=== PATIENT | female | born 1985 | race Caucasian/White ===

== ENCOUNTER 2016-09-20 08:20 | Emergency (ER) | payer OTHER | END 2016-09-20 09:28 | disposition home or self-care (01) | LOC: FER 08:20 | DX: H94.81 Other specified disorders of right ear in diseases classified elsewhere (principal); F17.200 Nicotine dependence, unspecified, uncomplicated; Z88.0 Allergy status to penicillin; Z88.1 Allergy status to other antibiotic agents; Z88.5 Allergy status to narcotic agent | CPT/HCPCS: 99282 ==

== ENCOUNTER 2016-09-23 12:28 | Emergency (ER) | payer OTHER | END 2016-09-23 16:59 | disposition home or self-care (01) | LOC: FER 12:28 | DX: R51 Headache (principal); Z88.0 Allergy status to penicillin; Z88.1 Allergy status to other antibiotic agents; Z88.5 Allergy status to narcotic agent | CPT/HCPCS: 70220; 99284 ==